=== PATIENT | male | born 1975 | race African-American/Black ===

== ENCOUNTER 2019-02-21 14:45 | Emergency (ER) | payer OTHER ==
[~2019-02-21] VITALS: Ht 177.8 cm; Wt 111.1 kg
[~2019-02-21 14:45] MED LIST: HYDROCODON-ACE1 EAC7 PO; IBUPROFEN 800800 MG PO
[2019-02-21] MEDS ORDERED: FLEXERIL PO (17:35)
[2019-02-21 17:40] VITALS: BP 124/65
== END 2019-02-21 17:40 | disposition home or self-care (01) ==
LOC: ER 14:45 → EDBD 14:45 → ER 17:40
DX: M54.5 Low back pain (principal); F17.210 Nicotine dependence, cigarettes, uncomplicated

== ENCOUNTER 2019-09-14 22:52 | Emergency (ER) | payer OTHER ==
[~2019-09-14] VITALS: Ht 180.3 cm; Wt 113.4 kg
[~2019-09-14 22:52] MED LIST changes: +FLEXERIL PO
[2019-09-14 22:57] VITALS: BP 161/99
[2019-09-14 23:12] LABS: URINE BILIRUBIN NEGATIVE (Negative); URINE BLOOD 2+ (Negative); URINE CLARITY CLEAR; URINE COLOR YELLOW; URINE GLUCOSE-RANDOM* NEGATIVE (Negative); URINE KETONES NEGATIVE (Negative); URINE LEUKOCYTES-REFLEX NEGATIVE (Negative); URINE NITRITE-REFLEX NEGATIVE (Negative); URINE PROTEIN (DIPSTICK) NEGATIVE (Negative); URINE SPECIFIC GRAVITY 1.025 (1.005-1.035); URINE UROBILINOGEN 0.2 E.U./dl (0.2-1.0)
[2019-09-14 23:23] LABS: BACTERIA-REFLEX None Seen /HPF (None Seen); CASTS None Seen /LPF (None Seen); CRYSTALS None Seen /LPF (None Seen); MUCUS 0-3 Light strn/LPF (None Seen); SQUAMOUS 0-3 Few /LPF (0-3); URINE RBC 0-2 Rare /HPF (0-2); URINE WBC-REFLEX 0-5 Rare /HPF (0-5)
[2019-09-14] MEDS ORDERED: METRONIDAZOLE500 M4 PO (23:32)
== END 2019-09-14 23:45 | disposition home or self-care (01) ==
LOC: ER 22:52
PROVIDERS: Emergency Medicine
DX: Z20.2 Contact with and (suspected) exposure to infections with a predominantly sexual mode of transmission (principal); N48.89 Other specified disorders of penis; F17.210 Nicotine dependence, cigarettes, uncomplicated